=== PATIENT | female | born 1955 | race Caucasian/White ===

== ENCOUNTER 2016-08-08 02:28 | Inpatient (IN) | payer OTHER ==
[~2016-08-08] VITALS: Ht 167.6 cm; Wt 96.0 kg
[~2016-08-08 02:28] MED LIST: ALBUAER3 IN; DIPH25CA6 PO; NOR5T PO; THEO300T14 PO
[2016-08-08] MEDS ORDERED: ALBUTEROL SULF 2.5 MG/0.5ML(0.5%) NEB SOLN HHN STA (07:51)
[2016-08-08] MEDS ORDERED: IPRATROPIUM BROM 0.5 MG/2.5ML INH SOL NEB ONE (08:00)
[2016-08-08] MEDS ORDERED: methylPREDNISolone SOD SUCC 125 MG/2 ML VL IV ONE (08:00)
[2016-08-08] MEDS: BUDESONIDE (INHALATION) 0.5 MG/2 ML NEB NEB SCH (08:02)
[2016-08-08] MEDS: ALBUTEROL SULF 2.5 MG/0.5ML(0.5%) NEB SOLN NEB SCH ×2 (08:02→13:50)
[2016-08-08 08:23] LABS: Basophils # (auto) 0.1 uL; Basophils % (auto) 0.5 % (0.0-2.0); DEFINITIVE VIEW TRANSMISSION; Eosinophils # (auto) 0.1 uL; Eosinophils % (auto) 0.4 % (0.0-7.0); Hematocrit 45.7 % (36.0-46.0); Hemoglobin 14.5 g/dL (12.2-16.2); Lymphocytes # (auto) 3.7 uL; Lymphocytes % (auto) 19.1 % (10.0-50.0); Mean Corpuscular Hemoglobin 26.8 pg (28.0-32.0); Mean Corpuscular Hgb Conc. 31.7 g/dL (32.0-36.0); Mean Corpuscular Volume 84.6 fL (80.0-100.0); Mean Platelet Volume 7.6 fL (7.4-10.4); Monocytes # (auto) 0.7 uL; Monocytes % (auto) 3.7 % (0.0-12.0); Neutrophils # (auto) 14.8 uL; Neutrophils % (auto) 76.3 % (37.0-80.0); Platelet Count (auto) 392 10^3/uL (140-450); Red Cell Distribution Width 15.2 % (11.6-16.0); White Blood Cell 19.4 10^3/uL (4.4-10.8)
[2016-08-08 08:48] LABS: Albumin 3.7 g/dL (3.4-5.0); BUN/Creatinine Ratio 29.6; Bilirubin, Total 0.3 mg/dL (0.2-1.0); Calcium 9.2 mg/dL (8.5-10.1); Magnesium 2.1 mg/dL (1.6-2.6); Potassium 3.9 mmol/L (3.5-5.1)
[2016-08-08 09:02] LABS: B-Type Natriuretic Peptide 8.87 pg/mL (0-100)
[2016-08-08 09:16] LABS: Temperature: 23.5 C (20.0-25.0)
[2016-08-08] MEDS ORDERED: DOXYCYCLINE HYC 100MG/250ML 250 ML IV ONE (12:45)
[2016-08-08] MEDS ORDERED: ALPRAZolam 0.25 MG TAB PO PRN (12:45)
[2016-08-08] MEDS ORDERED: DOXYCYCLINE HYC 100MG/250ML 250 ML IV SCH (12:45)
[2016-08-08] MEDS: IPRATROPIUM BROM 0.5 MG/2.5ML INH SOL NEB SCH ×2 (13:52→20:02)
[2016-08-08] MEDS: methylPREDNISolone SOD SUCC 40 MG/ML VL IV SCH ×2 (14:28→21:45)
[2016-08-08] MEDS: DOXYCYCLINE HYC 100MG/250ML 250 ML IV SCH (21:45)
[2016-08-08] MEDS: HYDROcodone-ACET 5/325MG TAB PO PRN (21:54)
[2016-08-08 22:00] VITALS: BP 131/58
[2016-08-09 01:23] VITALS: BP 131/58
[2016-08-09 05:00] VITALS: BP 94/51
[2016-08-09] MEDS: methylPREDNISolone SOD SUCC 40 MG/ML VL IV SCH ×2 (05:28→14:16)
[2016-08-09] MEDS: HYDROcodone-ACET 5/325MG TAB PO PRN ×3 (05:33→18:48)
[2016-08-09 06:51] LABS: Basophils # (auto) 0 uL; Basophils % (auto) 0.1 % (0.0-2.0); DEFINITIVE VIEW TRANSMISSION; Eosinophils # (auto) 0 uL; Hematocrit 42.4 % (36.0-46.0); Hemoglobin 13.5 g/dL (12.2-16.2); Lymphocytes # (auto) 1.9 uL; Lymphocytes % (auto) 8.6 % (10.0-50.0); Mean Corpuscular Hemoglobin 26.8 pg (28.0-32.0); Mean Corpuscular Hgb Conc. 31.8 g/dL (32.0-36.0); Mean Corpuscular Volume 84.4 fL (80.0-100.0); Mean Platelet Volume 7.7 fL (7.4-10.4); Monocytes # (auto) 0.4 uL; Monocytes % (auto) 1.9 % (0.0-12.0); Neutrophils # (auto) 20.1 uL; Neutrophils % (auto) 89.4 % (37.0-80.0); Platelet Count (auto) 397 10^3/uL (140-450); Red Cell Distribution Width 15.3 % (11.6-16.0); White Blood Cell 22.5 10^3/uL (4.4-10.8)
[2016-08-09] MEDS: ALBUTEROL SULF 2.5 MG/0.5ML(0.5%) NEB SOLN NEB SCH ×5 (07:14→23:10)
[2016-08-09] MEDS: IPRATROPIUM BROM 0.5 MG/2.5ML INH SOL NEB SCH ×5 (07:14→23:10)
[2016-08-09] MEDS: BUDESONIDE (INHALATION) 0.5 MG/2 ML NEB NEB SCH ×2 (07:14→19:04)
[2016-08-09 08:44] VITALS: BP 126/75
[2016-08-09] MEDS: DOXYCYCLINE HYC 100MG/250ML 250 ML IV SCH ×2 (09:39→21:24)
[2016-08-09] MEDS: ONDANSETRON HCL 4 MG/2 ML VIAL IV PRN ×2 (12:16→18:49)
[2016-08-09 12:37] VITALS: BP 95/59
[2016-08-09 16:56] VITALS: BP 123/76
[2016-08-09] MEDS ORDERED: IPRATROPIUM BROM 0.5 MG/2.5ML INH SOL NEB PRN (18:00)
[2016-08-09] MEDS ORDERED: ALBUTEROL SULF 2.5 MG/0.5ML(0.5%) NEB SOLN NEB PRN (18:00)
[2016-08-09] MEDS: ENOXAPARIN SOD 40 MG/0.4 ML SYRINGE SC SCH (18:11)
[2016-08-09] MEDS: methylPREDNISolone SOD SUCC 125 MG/2 ML VL IV SCH (21:24)
[2016-08-09 21:58] VITALS: BP 129/71
[2016-08-10] MEDS: IPRATROPIUM BROM 0.5 MG/2.5ML INH SOL NEB SCH ×6 (02:37→22:00)
[2016-08-10] MEDS: ALBUTEROL SULF 2.5 MG/0.5ML(0.5%) NEB SOLN NEB SCH ×6 (02:37→22:18)
[2016-08-10 05:02] VITALS: BP 129/69
[2016-08-10] MEDS: methylPREDNISolone SOD SUCC 125 MG/2 ML VL IV SCH ×3 (05:18→21:37)
[2016-08-10 07:43] LABS: BUN/Creatinine Ratio 25.7; Calcium 9.3 mg/dL (8.5-10.1); Magnesium 2.4 mg/dL (1.6-2.6); Potassium 4.4 mmol/L (3.5-5.1)
[2016-08-10 07:51] LABS: DEFINITIVE VIEW TRANSMISSION; Hematocrit 45.4 % (36.0-46.0); Hemoglobin 14.4 g/dL (12.2-16.2); Mean Corpuscular Hgb Conc. 31.6 g/dL (32.0-36.0); Mean Corpuscular Volume 85.3 fL (80.0-100.0); Mean Platelet Volume 8.4 fL (7.4-10.4); Platelet Count (auto) 413 10^3/uL (140-450); Red Cell Distribution Width 15.6 % (11.6-16.0); White Blood Cell 23.9 10^3/uL (4.4-10.8)
[2016-08-10 07:59] LABS: Metamyelocytes % 0; Myelocytes % 0; Promyelocytes % 0; Reactive Lymphocytes 0
[2016-08-10 08:28] LABS: Platelet Estimate Adequate; RBC Morphology Normal
[2016-08-10 09:08] VITALS: BP 124/71
[2016-08-10] MEDS: DOXYCYCLINE HYC 100MG/250ML 250 ML IV SCH ×2 (09:56→21:36)
[2016-08-10] MEDS: HYDROcodone-ACET 5/325MG TAB PO PRN (09:56)
[2016-08-10] MEDS: ONDANSETRON HCL 4 MG/2 ML VIAL IV PRN ×2 (09:56→17:27)
[2016-08-10] MEDS: BUDESONIDE (INHALATION) 0.5 MG/2 ML NEB NEB SCH ×2 (10:59→19:40)
[2016-08-10 12:57] VITALS: BP 135/78
[2016-08-10 16:55] VITALS: BP 130/76
[2016-08-10] MEDS: ENOXAPARIN SOD 40 MG/0.4 ML SYRINGE SC SCH (19:07)
[2016-08-10 21:30] VITALS: BP 127/63
[2016-08-11] MEDS: IPRATROPIUM BROM 0.5 MG/2.5ML INH SOL NEB SCH ×3 (02:25→22:50)
[2016-08-11] MEDS: ALBUTEROL SULF 2.5 MG/0.5ML(0.5%) NEB SOLN NEB SCH ×4 (02:36→22:50)
[2016-08-11 04:52] VITALS: BP 149/86
[2016-08-11] MEDS ORDERED: predniSONE 20 MG TAB PO SCH (06:00)
[2016-08-11 06:51] LABS: Basophils # (auto) 0.1 uL; Eosinophils # (auto) 0 uL; Mean Corpuscular Hemoglobin 27.1 pg (28.0-32.0); SUSPECT VIEW TRANSMISSION
[2016-08-11 06:54] LABS: Basophils % (auto) 0.8 % (0.0-2.0); Eosinophils % (auto) 0.1 % (0.0-7.0); Hematocrit 44.4 % (36.0-46.0); Hemoglobin 14.4 g/dL (12.2-16.2); Lymphocytes # (auto) 1.3 uL; Lymphocytes % (auto) 6.8 % (10.0-50.0); Mean Corpuscular Hgb Conc. 32.5 g/dL (32.0-36.0); Mean Corpuscular Volume 83.3 fL (80.0-100.0); Mean Platelet Volume 8.1 fL (7.4-10.4); Monocytes # (auto) 0.8 uL; Monocytes % (auto) 4.2 % (0.0-12.0); Neutrophils # (auto) 16.9 uL; Neutrophils % (auto) 88.1 % (37.0-80.0); Platelet Count (auto) 237 10^3/uL (140-450); Red Cell Distribution Width 15.2 % (11.6-16.0); White Blood Cell 19.2 10^3/uL (4.4-10.8)
[2016-08-11 07:20] LABS: Calcium 8.7 mg/dL (8.5-10.1); Magnesium 2.2 mg/dL (1.6-2.6); Potassium 4.2 mmol/L (3.5-5.1)
[2016-08-11] MEDS: BUDESONIDE (INHALATION) 0.5 MG/2 ML NEB NEB SCH ×2 (08:04→22:50)
[2016-08-11 09:00] VITALS: BP 136/59
[2016-08-11 13:00] VITALS: BP 145/82
[2016-08-11] MEDS: DOXYCYCLINE HYC 100MG/250ML 250 ML IV SCH ×2 (15:45→21:34)
[2016-08-11] MEDS: methylPREDNISolone SOD SUCC 125 MG/2 ML VL IV SCH ×2 (15:45→21:33)
[2016-08-11 17:00] VITALS: BP 129/53
[2016-08-11] MEDS: ENOXAPARIN SOD 40 MG/0.4 ML SYRINGE SC SCH (17:28)
[2016-08-11 21:34] VITALS: BP_SYST 137; BP_SYST 162; BP_DIAS 73; BP_DIAS 93
[2016-08-12] MEDS: ALBUTEROL SULF 2.5 MG/0.5ML(0.5%) NEB SOLN NEB SCH ×4 (02:35→14:53)
[2016-08-12] MEDS: IPRATROPIUM BROM 0.5 MG/2.5ML INH SOL NEB SCH ×4 (02:35→14:00)
[2016-08-12 04:39] VITALS: BP 125/76
[2016-08-12 05:37] LABS: Basophils # (auto) 0 uL; Basophils % (auto) 0.2 % (0.0-2.0); DEFINITIVE VIEW TRANSMISSION; Eosinophils # (auto) 0 uL; Eosinophils % (auto) 0.2 % (0.0-7.0); Hematocrit 43.2 % (36.0-46.0); Hemoglobin 13.7 g/dL (12.2-16.2); Lymphocytes # (auto) 1.1 uL; Lymphocytes % (auto) 6.7 % (10.0-50.0); Mean Corpuscular Hemoglobin 26.8 pg (28.0-32.0); Mean Corpuscular Hgb Conc. 31.7 g/dL (32.0-36.0); Mean Corpuscular Volume 84.5 fL (80.0-100.0); Mean Platelet Volume 7.3 fL (7.4-10.4); Monocytes # (auto) 0.2 uL; Monocytes % (auto) 1.3 % (0.0-12.0); Neutrophils # (auto) 14.7 uL; Neutrophils % (auto) 91.6 % (37.0-80.0); Platelet Count (auto) 413 10^3/uL (140-450); Red Cell Distribution Width 15.3 % (11.6-16.0)
[2016-08-12] MEDS: methylPREDNISolone SOD SUCC 125 MG/2 ML VL IV SCH ×2 (06:00→14:08)
[2016-08-12 08:06] VITALS: BP 140/82
[2016-08-12] MEDS: BUDESONIDE (INHALATION) 0.5 MG/2 ML NEB NEB SCH (09:11)
[2016-08-12] MEDS: DOXYCYCLINE HYC 100MG/250ML 250 ML IV SCH (09:59)
[2016-08-12 12:39] VITALS: BP 136/73
[2016-08-12 13:43] VITALS: BP 136/73
== END 2016-08-12 15:15 | disposition home or self-care (01) | DRG 193 ==
LOC: ER 02:29 → OVERFLOW 02:30 → EAST 14:35
PROVIDERS: ADMIT Internal Medicine; ATTEND Internal Medicine
DX: J18.9 Pneumonia, unspecified organism (principal); J96.20 Acute and chronic respiratory failure, unspecified whether with hypoxia or hypercapnia; J44.0 Chronic obstructive pulmonary disease with (acute) lower respiratory infection; J45.901 Unspecified asthma with (acute) exacerbation; J44.1 Chronic obstructive pulmonary disease with (acute) exacerbation; J98.11 Atelectasis; M19.90 Unspecified osteoarthritis, unspecified site; F32.9 Major depressive disorder, single episode, unspecified; E66.01 Morbid (severe) obesity due to excess calories; F41.9 Anxiety disorder, unspecified; I10 Essential (primary) hypertension; J20.9 Acute bronchitis, unspecified; T38.0X5A Adverse effect of glucocorticoids and synthetic analogues, initial encounter; D72.829 Elevated white blood cell count, unspecified; E78.5 Hyperlipidemia, unspecified; Z98.890 Other specified postprocedural states; Z86.73 Personal history of transient ischemic attack (TIA), and cerebral infarction without residual deficits; Z87.891 Personal history of nicotine dependence; Z98.49 Cataract extraction status, unspecified eye; Z82.49 Family history of ischemic heart disease and other diseases of the circulatory system; Z80.9 Family history of malignant neoplasm, unspecified; Z68.34 Body mass index [BMI] 34.0-34.9, adult; Z88.0 Allergy status to penicillin
CPT/HCPCS: 36415; 36600; 71010; 80048; 80053; 82805; 83735; 83880; 84484; 85007; 85025; 85027; 87400; 93005; 94640; 94644; 94761; 96374; J2405; J3490

== ENCOUNTER 2020-06-29 16:11 | Inpatient (IN) | payer OTHER ==
[~2020-06-29] VITALS: Ht 154.9 cm; Wt 103.0 kg
[~2020-06-29 16:11] MED LIST changes: +ALB5IS NEB; +ALBU0.084 NEB; -ALBUAER3 IN; +ATOR20TA50 PO; +BUDE0.253 IN; +DEX4T PO; -DIPH25CA6 PO; +DOXY-286 PO; +IPR002IS NEB; +LISI-648 PO; -NOR5T PO; +THEO1TAB6 PO; -THEO300T14 PO
[2020-06-29] MEDS ORDERED: methylPREDNISolone SOD SUCC 125 MG/2 ML VL IV ONE (17:00)
[2020-06-29] MEDS ORDERED: ALBUTEROL SULF 2.5 MG/0.5ML(0.5%) NEB SOLN HHN ONE (17:15)
[2020-06-29] MEDS ORDERED: IPRATROPIUM BROM 0.5 MG/2.5ML INH SOL HHN ONE (17:15)
[2020-06-29] MEDS ORDERED: ALBUTEROL SULF 2.5 MG/0.5ML(0.5%) NEB SOLN ONE (17:27)
[2020-06-29] MEDS ORDERED: IPRATROPIUM BROM 0.5 MG/2.5ML INH SOL ONE (17:28)
[2020-06-29 17:48] LABS: Basophils # (auto) 0.1 10 ^3/uL (0-0.2); Basophils % (auto) 0.4 % (0.0-2.0); Eosinophils # (auto) 0.3 10 ^3/uL (0-0.8); Eosinophils % (auto) 2.4 % (0.0-7.0); Hematocrit 41.2 % (36.0-46.0); Hemoglobin 13.6 g/dL (12.2-16.2); Lymphocytes # (auto) 1.8 10 ^3/uL (0.4-5.4); Lymphocytes % (auto) 14.1 % (10.0-50.0); Mean Corpuscular Hemoglobin 28.2 pg (28.0-32.0); Mean Corpuscular Volume 85.5 fL (80.0-100.0); Monocytes # (auto) 0.8 10 ^3/uL (0-1.3); Monocytes % (auto) 6.1 % (0.0-12.0); Neutrophils # (auto) 9.8 10 ^3/uL (1.6-8.6); Platelet Count (auto) 313 10^3/uL (140-450); Red Blood Cells 4.82 10^6/uL (4.0-5.20); Red Cell Distribution Width 15.6 % (11.8-14.3); White Blood Cell 12.8 10^3/uL (4.4-10.8)
[2020-06-29 18:06] LABS: Albumin 3.8 g/dL (3.4-5.0); Calcium 9.1 mg/dL (8.5-10.1); Potassium 4.3 mmol/L (3.5-5.1)
[2020-06-29 18:09] LABS: Bilirubin, Total 0.3 mg/dL (0.2-1.0); Total Protein 7.8 g/dL (6.4-8.2)
[2020-06-29] MEDS ORDERED: NITROGLYCERIN 0.4 MG SL TAB SL PRN (22:45)
[2020-06-29] MEDS ORDERED: DOCUSATE SOD 100 MG CAP PO PRN (22:45)
[2020-06-29] MEDS ORDERED: MORPHINE SULF INJ 2 MG/ML SYRINGE 1ML IV PRN (22:45)
[2020-06-29] MEDS ORDERED: ONDANSETRON HCL 4 MG/2 ML VIAL IV PRN (22:45)
[2020-06-29] MEDS ORDERED: hydrALAZINE HCL 20 MG/ML VL IV PRN (22:45)
[2020-06-29] MEDS ORDERED: ACETAMINOPHEN 500 MG TAB PO PRN (22:45)
[2020-06-29 23:32] VITALS: BP 138/71
[2020-06-30] MEDS ORDERED: ALBUTEROL SULF 2.5 MG/0.5ML(0.5%) NEB SOLN NEB ONE (01:15)
[2020-06-30] MEDS ORDERED: IPRATROPIUM BROM 0.5 MG/2.5ML INH SOL NEB ONE (01:15)
[2020-06-30 05:52] LABS: Basophils # (auto) 0 10 ^3/uL (0-0.2); Eosinophils # (auto) 0 10 ^3/uL (0-0.8); Hematocrit 40.4 % (36.0-46.0); Hemoglobin 13.1 g/dL (12.2-16.2); Lymphocytes # (auto) 0.7 10 ^3/uL (0.4-5.4); Lymphocytes % (auto) 5.3 % (10.0-50.0); Mean Corpuscular Hemoglobin 27.8 pg (28.0-32.0); Mean Corpuscular Hgb Conc. 32.5 g/dL (32.0-36.0); Mean Corpuscular Volume 85.4 fL (80.0-100.0); Monocytes # (auto) 0.1 10 ^3/uL (0-1.3); Monocytes % (auto) 0.7 % (0.0-12.0); Neutrophils # (auto) 12.9 10 ^3/uL (1.6-8.6); Platelet Count (auto) 302 10^3/uL (140-450); Red Blood Cells 4.73 10^6/uL (4.0-5.20); Red Cell Distribution Width 15.4 % (11.8-14.3); White Blood Cell 13.7 10^3/uL (4.4-10.8)
[2020-06-30] MEDS ORDERED: ALBUTEROL SULF HFA 90MCG INH 200DOSE IN SCH (06:00)
[2020-06-30 06:12] LABS: Albumin 3.6 g/dL (3.4-5.0); Calcium 8.9 mg/dL (8.5-10.1); Potassium 3.9 mmol/L (3.5-5.1)
[2020-06-30 06:14] LABS: BUN/Creatinine Ratio 22.4
[2020-06-30 06:17] LABS: Bilirubin, Total 0.3 mg/dL (0.2-1.0); Total Protein 7.7 g/dL (6.4-8.2)
[2020-06-30] MEDS: ALBUTEROL SULF 2.5 MG/0.5ML(0.5%) NEB SOLN NEB SCH ×5 (06:27→22:50)
[2020-06-30] MEDS: IPRATROPIUM BROM 0.5 MG/2.5ML INH SOL NEB SCH ×5 (06:27→22:50)
[2020-06-30] MEDS ORDERED: IPRATROPIUM BROM 0.5 MG/2.5ML INH SOL NEB PRN (08:00)
[2020-06-30] MEDS ORDERED: ALBUTEROL SULF 2.5 MG/0.5ML(0.5%) NEB SOLN NEB PRN (08:00)
[2020-06-30] MEDS ORDERED: DexAMETHasone SOD PHOS 10MG/1ML VIAL INJ IV SCH (10:00)
[2020-06-30] MEDS ORDERED: ASCORBIC ACID 1,000 MG TAB PO SCH (10:00)
[2020-06-30] MEDS ORDERED: ZINC SULFATE 220mg CAP or TAB PO SCH (10:00)
[2020-06-30] MEDS: PANTOPRAZOLE 40 MG/10 ML VIAL INJ IV SCH (10:00)
[2020-06-30] MEDS: ENOXAPARIN SOD 40 MG/0.4 ML SYRINGE SC SCH (10:00)
[2020-06-30] MEDS ORDERED: CHOLECALCIFEROL (VITD3) 2,000 UNIT CAP PO SCH (10:00)
[2020-06-30] MEDS ORDERED: BUDESONIDE (INHALATION) 180 MCG IH IN SCH (10:00)
[2020-06-30] MEDS: DOXYCYCLINE 100MG/250ML 250 ML IV SCH ×2 (10:00→23:36)
[2020-06-30] MEDS: MULTIPLE VITAMIN TAB PO SCH (10:00)
[2020-06-30] MEDS: methylPREDNISolone SOD SUCC 40 MG/ML VL IV SCH ×2 (14:50→23:35)
[2020-06-30 16:24] VITALS: BP 140/81
[2020-06-30 17:00] VITALS: BP 148/89
[2020-07-01] VITALS (7 sets, daily range): BP systolic 110–131; BP diastolic 75–83
[2020-07-01] MEDS: ALBUTEROL SULF 2.5 MG/0.5ML(0.5%) NEB SOLN NEB SCH ×6 (02:36→22:40)
[2020-07-01] MEDS: IPRATROPIUM BROM 0.5 MG/2.5ML INH SOL NEB SCH ×6 (02:36→22:40)
[2020-07-01] MEDS: diphenhdrAMINE HCL 25 MG CAP PO PRN ×4 (04:03→22:18)
[2020-07-01] MEDS: methylPREDNISolone SOD SUCC 40 MG/ML VL IV SCH ×3 (06:00→22:18)
[2020-07-01] MEDS: MULTIPLE VITAMIN TAB PO SCH (10:06)
[2020-07-01] MEDS: DOXYCYCLINE 100MG/250ML 250 ML IV SCH ×2 (10:06→22:19)
[2020-07-01] MEDS: PANTOPRAZOLE 40 MG/10 ML VIAL INJ IV SCH (10:06)
[2020-07-01] MEDS: ENOXAPARIN SOD 40 MG/0.4 ML SYRINGE SC SCH (10:07)
[2020-07-02] MEDS: IPRATROPIUM BROM 0.5 MG/2.5ML INH SOL NEB SCH ×6 (01:46→22:29)
[2020-07-02] MEDS: ALBUTEROL SULF 2.5 MG/0.5ML(0.5%) NEB SOLN NEB SCH ×6 (01:46→22:29)
[2020-07-02 05:17] VITALS: BP 143/89
[2020-07-02] MEDS: methylPREDNISolone SOD SUCC 40 MG/ML VL IV SCH ×4 (05:40→23:17)
[2020-07-02 06:36] LABS: Basophils # (auto) 0 10 ^3/uL (0-0.2); Eosinophils # (auto) 0 10 ^3/uL (0-0.8); Hematocrit 40.7 % (36.0-46.0); Hemoglobin 13.1 g/dL (12.2-16.2); Lymphocytes % (auto) 7.6 % (10.0-50.0); Mean Corpuscular Hemoglobin 27.8 pg (28.0-32.0); Mean Corpuscular Hgb Conc. 32.1 g/dL (32.0-36.0); Mean Corpuscular Volume 86.7 fL (80.0-100.0); Monocytes # (auto) 0.4 10 ^3/uL (0-1.3); Monocytes % (auto) 2.6 % (0.0-12.0); Neutrophils # (auto) 12.4 10 ^3/uL (1.6-8.6); Neutrophils % (auto) 89.8 % (37.0-80.0); Nucleated Red Blood Cells % 0.2 %; Platelet Count (auto) 302 10^3/uL (140-450); Red Blood Cells 4.69 10^6/uL (4.0-5.20); Red Cell Distribution Width 15.9 % (11.8-14.3); White Blood Cell 13.9 10^3/uL (4.4-10.8)
[2020-07-02 07:08] LABS: BUN/Creatinine Ratio 29.1; Calcium 9.2 mg/dL (8.5-10.1); Magnesium 2.4 mg/dL (1.6-2.6); Potassium 4.1 mmol/L (3.5-5.1)
[2020-07-02 08:00] VITALS: BP 127/79
[2020-07-02 08:12] VITALS: BP 127/79
[2020-07-02] MEDS: PANTOPRAZOLE 40 MG/10 ML VIAL INJ IV SCH (09:45)
[2020-07-02] MEDS: DOXYCYCLINE 100MG/250ML 250 ML IV SCH ×2 (09:45→21:26)
[2020-07-02] MEDS: ENOXAPARIN SOD 40 MG/0.4 ML SYRINGE SC SCH (09:45)
[2020-07-02] MEDS: MULTIPLE VITAMIN TAB PO SCH (09:45)
[2020-07-02] MEDS: BUDESONIDE (INHALATION) 0.5 MG/2 ML NEB NEB SCH ×2 (10:44→19:02)
[2020-07-02 12:23] VITALS: BP 110/66
[2020-07-02 17:00] VITALS: BP 133/86
[2020-07-02 20:15] VITALS: BP 146/88
[2020-07-03 01:55] VITALS: BP 133/86
[2020-07-03] MEDS: ALBUTEROL SULF 2.5 MG/0.5ML(0.5%) NEB SOLN NEB SCH ×6 (02:05→23:06)
[2020-07-03] MEDS: IPRATROPIUM BROM 0.5 MG/2.5ML INH SOL NEB SCH ×6 (02:05→23:06)
[2020-07-03] MEDS: methylPREDNISolone SOD SUCC 40 MG/ML VL IV SCH ×3 (05:52→18:11)
[2020-07-03 06:26] LABS: Basophils # (auto) 0 10 ^3/uL (0-0.2); Basophils % (auto) 0.2 % (0.0-2.0); Eosinophils # (auto) 0 10 ^3/uL (0-0.8); Hematocrit 42.3 % (36.0-46.0); Hemoglobin 13.5 g/dL (12.2-16.2); Lymphocytes # (auto) 0.9 10 ^3/uL (0.4-5.4); Lymphocytes % (auto) 7.3 % (10.0-50.0); Mean Corpuscular Hemoglobin 27.6 pg (28.0-32.0); Mean Corpuscular Volume 86.3 fL (80.0-100.0); Monocytes # (auto) 0.5 10 ^3/uL (0-1.3); Monocytes % (auto) 3.7 % (0.0-12.0); Neutrophils # (auto) 11.5 10 ^3/uL (1.6-8.6); Neutrophils % (auto) 88.8 % (37.0-80.0); Platelet Count (auto) 328 10^3/uL (140-450); Red Cell Distribution Width 15.6 % (11.8-14.3)
[2020-07-03 06:29] LABS: Albumin 3.4 g/dL (3.4-5.0)
[2020-07-03 06:35] LABS: BUN/Creatinine Ratio 27.3; Bilirubin, Total 0.3 mg/dL (0.2-1.0); Total Protein 7.2 g/dL (6.4-8.2)
[2020-07-03] MEDS: BUDESONIDE (INHALATION) 0.5 MG/2 ML NEB NEB SCH ×2 (06:58→18:25)
[2020-07-03 09:00] VITALS: BP 139/69
[2020-07-03 09:17] VITALS: BP 133/86
[2020-07-03] MEDS: MULTIPLE VITAMIN TAB PO SCH (09:32)
[2020-07-03] MEDS: DOXYCYCLINE 100MG/250ML 250 ML IV SCH ×2 (09:32→22:20)
[2020-07-03] MEDS: PANTOPRAZOLE 40 MG/10 ML VIAL INJ IV SCH (09:32)
[2020-07-03] MEDS: ENOXAPARIN SOD 40 MG/0.4 ML SYRINGE SC SCH (09:33)
[2020-07-03 13:00] VITALS: BP 151/92
[2020-07-03 20:10] VITALS: BP 128/78
[2020-07-03 21:46] VITALS: BP 128/78
[2020-07-04] VITALS (7 sets, daily range): BP systolic 138–144; BP diastolic 67–102
[2020-07-04] MEDS: methylPREDNISolone SOD SUCC 40 MG/ML VL IV SCH ×4 (01:10→17:30)
[2020-07-04] MEDS: ALBUTEROL SULF 2.5 MG/0.5ML(0.5%) NEB SOLN NEB SCH ×6 (02:00→23:22)
[2020-07-04] MEDS: IPRATROPIUM BROM 0.5 MG/2.5ML INH SOL NEB SCH ×6 (02:00→23:22)
[2020-07-04] MEDS ORDERED: IPRATROPIUM BROM 0.5 MG/2.5ML INH SOL NEB ONE (02:00)
[2020-07-04] MEDS ORDERED: ALBUTEROL SULF 2.5 MG/0.5ML(0.5%) NEB SOLN NEB ONE (02:00)
[2020-07-04] MEDS: BUDESONIDE (INHALATION) 0.5 MG/2 ML NEB NEB SCH ×2 (05:52→23:21)
[2020-07-04] MEDS: MULTIPLE VITAMIN TAB PO SCH (09:48)
[2020-07-04] MEDS: PANTOPRAZOLE 40 MG/10 ML VIAL INJ IV SCH (09:48)
[2020-07-04] MEDS: DOXYCYCLINE 100MG/250ML 250 ML IV SCH ×2 (09:48→22:26)
[2020-07-04] MEDS: ENOXAPARIN SOD 40 MG/0.4 ML SYRINGE SC SCH (09:49)
[2020-07-05] MEDS: methylPREDNISolone SOD SUCC 40 MG/ML VL IV SCH ×4 (00:22→22:29)
[2020-07-05] MEDS: IPRATROPIUM BROM 0.5 MG/2.5ML INH SOL NEB SCH ×7 (02:38→22:38)
[2020-07-05] MEDS: ALBUTEROL SULF 2.5 MG/0.5ML(0.5%) NEB SOLN NEB SCH ×7 (02:38→22:38)
[2020-07-05 05:00] VITALS: BP 139/94
[2020-07-05 07:13] LABS: Hematocrit 41.6 % (36.0-46.0); Hemoglobin 13.6 g/dL (12.2-16.2); Mean Corpuscular Hemoglobin 28.2 pg (28.0-32.0); Mean Corpuscular Hgb Conc. 32.7 g/dL (32.0-36.0); Mean Corpuscular Volume 86.2 fL (80.0-100.0); Platelet Count (auto) 330 10^3/uL (140-450); Red Blood Cells 4.82 10^6/uL (4.0-5.20); Red Cell Distribution Width 15.5 % (11.8-14.3)
[2020-07-05 07:16] LABS: Basophils % (manual) 0 (0.0-2.0); Blast Cells 0; Eosinophils % (manual) 0 (0-7); Myelocytes % 0; Promyelocytes % 0
[2020-07-05 07:26] LABS: Calcium 8.6 mg/dL (8.5-10.1); Magnesium 2.1 mg/dL (1.6-2.6); Potassium 4.1 mmol/L (3.5-5.1)
[2020-07-05 07:28] LABS: BUN/Creatinine Ratio 29.5
[2020-07-05 08:10] VITALS: BP 141/91
[2020-07-05 09:00] VITALS: BP 141/91
[2020-07-05] MEDS: PANTOPRAZOLE 40 MG/10 ML VIAL INJ IV SCH (09:18)
[2020-07-05] MEDS: MULTIPLE VITAMIN TAB PO SCH (09:18)
[2020-07-05] MEDS: ENOXAPARIN SOD 40 MG/0.4 ML SYRINGE SC SCH (09:18)
[2020-07-05 09:47] LABS: Band Neutrophils % (manual) 4; Lymphocytes % (manual) 6 (10.0-50.0); Metamyelocytes % 1; Monocytes % (manual) 5 (0-12); Reactive Lymphocytes 5
[2020-07-05] MEDS: BUDESONIDE (INHALATION) 0.5 MG/2 ML NEB NEB SCH ×2 (10:23→18:46)
[2020-07-05 13:00] VITALS: BP 138/79
[2020-07-05 17:00] VITALS: BP 138/79
[2020-07-05 22:00] VITALS: BP 133/83
[2020-07-05] MEDS: VORICONAZOLE INJ 400 MG in D5W 5% 250 ML IV SCH (22:00)
[2020-07-05] MEDS: diphenhdrAMINE HCL 25 MG CAP PO PRN (22:29)
[2020-07-06] MEDS: IPRATROPIUM BROM 0.5 MG/2.5ML INH SOL NEB SCH ×6 (01:41→22:41)
[2020-07-06] MEDS: ALBUTEROL SULF 2.5 MG/0.5ML(0.5%) NEB SOLN NEB SCH ×6 (01:41→22:41)
[2020-07-06 05:00] VITALS: BP 141/82
[2020-07-06] MEDS: BUDESONIDE (INHALATION) 0.5 MG/2 ML NEB NEB SCH ×2 (06:11→18:20)
[2020-07-06 07:39] VITALS: BP 141/82
[2020-07-06 09:00] VITALS: BP 120/77
[2020-07-06] MEDS: ENOXAPARIN SOD 40 MG/0.4 ML SYRINGE SC SCH (09:44)
[2020-07-06] MEDS: PANTOPRAZOLE 40 MG/10 ML VIAL INJ IV SCH (09:44)
[2020-07-06] MEDS: MULTIPLE VITAMIN TAB PO SCH (09:44)
[2020-07-06] MEDS: methylPREDNISolone SOD SUCC 40 MG/ML VL IV SCH ×2 (09:44→21:42)
[2020-07-06] MEDS: VORICONAZOLE INJ 400 MG in D5W 5% 250 ML IV SCH (11:42)
[2020-07-06 13:00] VITALS: BP 119/77
[2020-07-06 16:47] VITALS: BP 119/78
[2020-07-06] MEDS: VORICONAZOLE INJ 200 MG in D5W 5% 250 ML IV SCH (21:42)
[2020-07-06] MEDS: diphenhdrAMINE HCL 25 MG CAP PO PRN (21:42)
[2020-07-06 22:00] VITALS: BP 113/64
[2020-07-07] MEDS: IPRATROPIUM BROM 0.5 MG/2.5ML INH SOL NEB SCH ×5 (02:35→18:46)
[2020-07-07] MEDS: ALBUTEROL SULF 2.5 MG/0.5ML(0.5%) NEB SOLN NEB SCH ×5 (02:35→18:46)
[2020-07-07 05:00] VITALS: BP 115/72
[2020-07-07] MEDS: BUDESONIDE (INHALATION) 0.5 MG/2 ML NEB NEB SCH ×2 (06:34→18:46)
[2020-07-07 09:00] VITALS: BP 119/68
[2020-07-07] MEDS: methylPREDNISolone SOD SUCC 40 MG/ML VL IV SCH ×2 (09:55→21:20)
[2020-07-07] MEDS: ENOXAPARIN SOD 40 MG/0.4 ML SYRINGE SC SCH (09:55)
[2020-07-07] MEDS: MULTIPLE VITAMIN TAB PO SCH (09:56)
[2020-07-07] MEDS: PANTOPRAZOLE 40 MG/10 ML VIAL INJ IV SCH (09:56)
[2020-07-07] MEDS: VORICONAZOLE INJ 200 MG in D5W 5% 250 ML IV SCH ×2 (10:00→22:00)
[2020-07-07 13:04] VITALS: BP 129/72
[2020-07-07 17:21] VITALS: BP 139/88
[2020-07-07 17:45] VITALS: BP 139/88
== END 2020-07-07 21:58 | disposition home health service (06) | DRG 189 ==
LOC: ER 16:11 → TELE 16:12 → TELE-WESTW 06-30 14:19
PROVIDERS: ADMIT Nurse Practitioner Family; ATTEND Internal Medicine
PROC: 5A09357 Assistance with Respiratory Ventilation, Less than 24 Consecutive Hours, Continuous Positive Airway Pressure (ICD-10-PCS; principal; 2020-06-30)
PROC: 5A09357 Assistance with Respiratory Ventilation, Less than 24 Consecutive Hours, Continuous Positive Airway Pressure (ICD-10-PCS; 2020-07-01)
PROC: 5A09357 Assistance with Respiratory Ventilation, Less than 24 Consecutive Hours, Continuous Positive Airway Pressure (ICD-10-PCS; 2020-07-03)
PROC: 5A09357 Assistance with Respiratory Ventilation, Less than 24 Consecutive Hours, Continuous Positive Airway Pressure (ICD-10-PCS; 2020-07-04)
PROC: 5A09357 Assistance with Respiratory Ventilation, Less than 24 Consecutive Hours, Continuous Positive Airway Pressure (ICD-10-PCS; 2020-07-05)
DX: J96.21 Acute and chronic respiratory failure with hypoxia (principal); J44.1 Chronic obstructive pulmonary disease with (acute) exacerbation; J45.902 Unspecified asthma with status asthmaticus; Z68.41 Body mass index [BMI] 40.0-44.9, adult; J44.0 Chronic obstructive pulmonary disease with (acute) lower respiratory infection; J20.9 Acute bronchitis, unspecified; E66.01 Morbid (severe) obesity due to excess calories; I10 Essential (primary) hypertension; E78.5 Hyperlipidemia, unspecified; Z20.828 Contact with and (suspected) exposure to other viral communicable diseases; D72.828 Other elevated white blood cell count; Z77.22 Contact with and (suspected) exposure to environmental tobacco smoke (acute) (chronic); F32.9 Major depressive disorder, single episode, unspecified; F41.9 Anxiety disorder, unspecified; Z80.9 Family history of malignant neoplasm, unspecified; Z82.49 Family history of ischemic heart disease and other diseases of the circulatory system; Z82.5 Family history of asthma and other chronic lower respiratory diseases; Z82.61 Family history of arthritis; Z86.73 Personal history of transient ischemic attack (TIA), and cerebral infarction without residual deficits; Z88.0 Allergy status to penicillin; Z71.3 Dietary counseling and surveillance
CPT/HCPCS: 36415; 36600; 71045; 71250; 80048; 80053; 82728; 82805; 83615; 83735; 83880; 85007; 85025; 85027; 85379; 86141; 86606; 87070; 87205; 87426; 93970; 94640; 94644; 94660; 96365; 96375; 99291; C9113; G0378; J1100; J3465; J3490; J7060

== ENCOUNTER 2022-08-26 10:34 | Inpatient (IN) | payer OTHER ==
[~2022-08-26] VITALS: Ht 157.5 cm; Wt 104.5 kg
[~2022-08-26 10:34] MED LIST changes: -DEX4T PO; -DOXY-286 PO; -LISI-648 PO; +LISI-716 PO
[2022-08-26] MEDS ORDERED: methylPREDNISolone SOD SUCC 125 MG/2 ML VL IV ONE (10:45)
[2022-08-26 11:25] LABS: Basophils # (auto) 0.1 10 ^3/uL (0-0.2); Basophils % (auto) 0.4 % (0.0-2.0); Eosinophils # (auto) 0.3 10 ^3/uL (0-0.8); Eosinophils % (auto) 1.8 % (0.0-7.0); Hematocrit 42.2 % (36.0-46.0); Hemoglobin 13.6 g/dL (12.2-16.2); Lymphocytes # (auto) 1.8 10 ^3/uL (0.4-5.4); Lymphocytes % (auto) 10.8 % (10.0-50.0); Mean Corpuscular Hemoglobin 27.6 pg (28.0-32.0); Mean Corpuscular Hgb Conc. 32.3 g/dL (32.0-36.0); Mean Corpuscular Volume 85.4 fL (80.0-100.0); Monocytes # (auto) 1.1 10 ^3/uL (0-1.3); Monocytes % (auto) 6.5 % (0.0-12.0); Neutrophils # (auto) 13.4 10 ^3/uL (1.6-8.6); Neutrophils % (auto) 80.5 % (37.0-80.0); Red Blood Cells 4.94 10^6/uL (4.0-5.20); Red Cell Distribution Width 15.3 % (11.8-14.3); White Blood Cell 16.6 10^3/uL (4.4-10.8)
[2022-08-26] MEDS ORDERED: IPRATROPIUM BROM 0.5 MG/2.5ML INH SOL NEB ONE (11:30)
[2022-08-26] MEDS ORDERED: ALBUTEROL SULF 2.5 MG/0.5ML(0.5%) NEB SOLN NEB ONE (11:30)
[2022-08-26 11:38] LABS: Albumin 3.9 g/dL (3.4-5.0)
[2022-08-26] MEDS ORDERED: ALBUTEROL MEDNEB 2.5 mg/3ml NEB ONE (11:39)
[2022-08-26 11:58] LABS: BUN/Creatinine Ratio 27.4; Bilirubin, Total 0.4 mg/dL (0.2-1.0); Calcium 9.8 mg/dL (8.5-10.1); Total Protein 7.4 g/dL (6.4-8.2)
[2022-08-26] MEDS ORDERED: IPRATROPIUM BROM 0.5 MG/2.5ML INH SOL NEB SCH (18:00)
[2022-08-26] MEDS ORDERED: ALBUTEROL MEDNEB 2.5 mg/3ml NEB NEB SCH (18:00)
[2022-08-26] MEDS ORDERED: IPRATROPIUM BROM 0.5 MG/2.5ML INH SOL NEB PRN (18:00)
[2022-08-26] MEDS ORDERED: PANTOPRAZOLE 40 MG/10 ML VIAL INJ IV ONE (19:00)
[2022-08-26] MEDS ORDERED: NITROGLYCERIN 0.4 MG SL TAB SL PRN (19:00)
[2022-08-26] MEDS ORDERED: MORPHINE SULFATE INJ 2 MG/ml SYRG IV PRN (19:00)
[2022-08-26] MEDS ORDERED: ALBUTEROL MEDNEB 2.5 mg/3ml NEB NEB PRN (19:15)
[2022-08-26] MEDS ORDERED: ENOXAPARIN SOD 40 MG/0.4 ML SYRINGE SC ONE (19:30)
[2022-08-26 20:10] LABS: Cholesterol 208 mg/dL (< 200); Triglycerides 78 mg/dL (< 150)
[2022-08-26 20:12] LABS: HDL Cholesterol 90 mg/dL (40-59); LDL Cholesterol 111 mg/dL (< 100)
[2022-08-26] MEDS ORDERED: IOHEXOL 350 MG/ML 100ML IJ ONE (20:25)
[2022-08-26] MEDS: ATORVASTATIN 20 MG TAB PO SCH (20:47)
[2022-08-26] MEDS: methylPREDNISolone SOD SUCC 125 MG/2 ML VL IV SCH (20:57)
[2022-08-26] MEDS: THEOPHYLLINE 300 MG PO SCH (21:09)
[2022-08-26] MEDS: IPRATROPIUM BROM 0.5 MG/2.5ML INH SOL NEB SCH (22:22)
[2022-08-26] MEDS: ALBUTEROL MEDNEB 2.5 mg/3ml NEB NEB SCH (22:22)
[2022-08-27] MEDS: ALBUTEROL MEDNEB 2.5 mg/3ml NEB NEB SCH ×6 (02:40→21:53)
[2022-08-27] MEDS: IPRATROPIUM BROM 0.5 MG/2.5ML INH SOL NEB SCH ×6 (02:41→21:52)
[2022-08-27 05:10] VITALS: BP 130/69
[2022-08-27] MEDS ORDERED: EZET10TA22 PO (05:32)
[2022-08-27 08:00] VITALS: BP 120/59
[2022-08-27 08:47] LABS: Basophils # (auto) 0 10 ^3/uL (0-0.2); Basophils % (auto) 0.2 % (0.0-2.0); Eosinophils # (auto) 0 10 ^3/uL (0-0.8); Hematocrit 40.4 % (36.0-46.0); Hemoglobin 12.9 g/dL (12.2-16.2); Lymphocytes # (auto) 1.2 10 ^3/uL (0.4-5.4); Mean Corpuscular Hemoglobin 27.4 pg (28.0-32.0); Mean Corpuscular Hgb Conc. 31.9 g/dL (32.0-36.0); Mean Corpuscular Volume 86.1 fL (80.0-100.0); Monocytes # (auto) 0.6 10 ^3/uL (0-1.3); Monocytes % (auto) 3.4 % (0.0-12.0); Neutrophils # (auto) 15.2 10 ^3/uL (1.6-8.6); Neutrophils % (auto) 89.4 % (37.0-80.0); Red Blood Cells 4.69 10^6/uL (4.0-5.20); Red Cell Distribution Width 15.3 % (11.8-14.3)
[2022-08-27 09:04] VITALS: BP 120/59
[2022-08-27 09:14] LABS: Albumin 3.4 g/dL (3.4-5.0); BUN/Creatinine Ratio 23.2; Calcium 9.3 mg/dL (8.5-10.1); Potassium 3.8 mmol/L (3.5-5.1)
[2022-08-27 09:17] LABS: Bilirubin, Total 0.5 mg/dL (0.2-1.0); Total Protein 6.9 g/dL (6.4-8.2)
[2022-08-27] MEDS: LISINOPRIL 10 MG TAB PO SCH (10:00)
[2022-08-27] MEDS: THEOPHYLLINE 300 MG PO SCH ×2 (10:00→22:00)
[2022-08-27] MEDS: methylPREDNISolone SOD SUCC 125 MG/2 ML VL IV SCH ×2 (11:14→22:25)
[2022-08-27] MEDS: PANTOPRAZOLE 40 MG/10 ML VIAL INJ IV SCH (11:14)
[2022-08-27] MEDS: ENOXAPARIN SOD 40 MG/0.4 ML SYRINGE SC SCH (11:15)
[2022-08-27 13:00] VITALS: BP 124/66
[2022-08-27 13:54] LABS: Urine Bacteria FEW /hpf (None Seen); Urine Blood Negative /uL (Negative); Urine Specific Gravity 1.017 (1.001-1.035); Urine WBC 9 /hpf (0 - 5)
[2022-08-27 17:00] VITALS: BP 140/77
[2022-08-27] MEDS: levoFLOXacin 500 MG TAB PO SCH (17:39)
[2022-08-27 22:00] VITALS: BP 121/61
[2022-08-27] MEDS: ATORVASTATIN 20 MG TAB PO SCH (22:25)
[2022-08-28] MEDS ORDERED: ACETAMINOPHEN 325 MG TAB PO PRN (00:15)
[2022-08-28] MEDS: ACETAMINOPHEN 325 MG TAB PO PRN ×2 (00:22→15:01)
[2022-08-28 05:00] VITALS: BP 130/73
[2022-08-28] MEDS: ALBUTEROL MEDNEB 2.5 mg/3ml NEB NEB SCH ×5 (06:49→22:37)
[2022-08-28] MEDS: IPRATROPIUM BROM 0.5 MG/2.5ML INH SOL NEB SCH ×5 (06:49→22:37)
[2022-08-28 08:00] VITALS: BP 133/59
[2022-08-28 09:00] VITALS: BP 144/81
[2022-08-28] MEDS: PANTOPRAZOLE 40 MG/10 ML VIAL INJ IV SCH (09:06)
[2022-08-28] MEDS: ENOXAPARIN SOD 40 MG/0.4 ML SYRINGE SC SCH (09:07)
[2022-08-28] MEDS: levoFLOXacin 500 MG TAB PO SCH (09:07)
[2022-08-28] MEDS: methylPREDNISolone SOD SUCC 125 MG/2 ML VL IV SCH (09:07)
[2022-08-28] MEDS: LISINOPRIL 10 MG TAB PO SCH (09:08)
[2022-08-28] MEDS: THEOPHYLLINE 300 MG PO SCH (10:00)
[2022-08-28 13:00] VITALS: BP 133/59
[2022-08-28] MEDS ORDERED: LEVO-28 PO (15:29)
[2022-08-28] MEDS ORDERED: PRED20TA2 PO (15:29)
[2022-08-28 16:59] VITALS: BP 121/68
[2022-08-28 19:54] VITALS: BP 121/68
== END 2022-08-28 21:30 | disposition home or self-care (01) | DRG 189 ==
LOC: EDUNIT# 10:34 → ER 10:34 → EDBD 10:34 → TELE 18:57 → TELE-WESTW 08-27 04:50
PROVIDERS: ADMIT Registered Nurse; ATTEND Internal Medicine
PROC: 5A09357 Assistance with Respiratory Ventilation, Less than 24 Consecutive Hours, Continuous Positive Airway Pressure (ICD-10-PCS; principal; 2022-08-27)
PROC: 5A09357 Assistance with Respiratory Ventilation, Less than 24 Consecutive Hours, Continuous Positive Airway Pressure (ICD-10-PCS; 2022-08-28)
DX: J96.21 Acute and chronic respiratory failure with hypoxia (principal); J44.1 Chronic obstructive pulmonary disease with (acute) exacerbation; Z68.41 Body mass index [BMI] 40.0-44.9, adult; J98.11 Atelectasis; J45.901 Unspecified asthma with (acute) exacerbation; Z20.822 Contact with and (suspected) exposure to COVID-19; D72.829 Elevated white blood cell count, unspecified; E66.01 Morbid (severe) obesity due to excess calories; E78.5 Hyperlipidemia, unspecified; I10 Essential (primary) hypertension; Z82.49 Family history of ischemic heart disease and other diseases of the circulatory system; Z82.5 Family history of asthma and other chronic lower respiratory diseases; Z88.0 Allergy status to penicillin; Z86.73 Personal history of transient ischemic attack (TIA), and cerebral infarction without residual deficits; Z99.81 Dependence on supplemental oxygen
CPT/HCPCS: 36415; 36600; 71045; 71275; 80053; 80061; 81001; 82805; 83036; 84443; 84484; 85025; 87040; 87426; 93005; 94640; 94660; 96372; 96374; 96375; 99291; C9113; G0378